=== PATIENT | male | born 1965 | race Hispanic/Latino ===

== ENCOUNTER 2017-10-27 03:02 | Emergency (ER) | payer OTHER ==
[2017-10-27 03:24] VITALS: RESP 18
[2017-10-27] MEDS ORDERED: Albuterol-Ipratrop 3 mg / 0.5 (3 ml) UD INH STA ×2 (03:45→03:46)
[2017-10-27] MEDS ORDERED: Dexamethasone 4 mg/1 ml IM STA (03:45)
[2017-10-27] MEDS ORDERED: Albuterol-Ipratrop 3 mg / 0.5 (3 ml) UD ONE (03:54)
--- NOTE | 2017-10-27 04:01 | ED PDOC ---
HPI: General Adult Time Seen by Provider: 10/27/17 03:30 Chief Complaint (Nursing): ENT Problem Chief Complaint (Provider): ENT Problem History Per: Patient History/Exam Limitations: intoxication Onset/Duration Of Symptoms: Other (3 years) Have you had recent travel within the past 21 days to any of the following countries: [place], [place], [place] or [place]?: No Current Symptoms Are (Timing): Still Present Additional Complaint(s): 52 y/o undomiciled male with a history of COPD presents to the ED with nasal pain. Patient states he has had this for 3 years, however it has worsened in the last month. He denies taking anything for the pain, but admits to drinking daily. Patient states his friend was being evaluated in ED, so he signed in as well. Denies any recent trauma, but states he broke his nose years ago. PMD: None available Past Medical History Reviewed: Historical Data, Nursing Documentation, Vital Signs Vital Signs: Last Vital Signs Temp 97.8 F 10/27/17 03:21 Pulse 103 H 10/27/17 04:48 Resp 18 10/27/17 04:48 BP 145/84 10/27/17 04:21 Pulse Ox 89 L 10/27/17 05:41 - Medical History PMH: COPD Other PMH: right wrist fracture, cirrhosis - Surgical History Surgical History: No Surg Hx - Family History Family History: States: Unknown Family Hx - Living Arrangements Living Arrangements: Other (homeless) - Social History Current smoker - smoking cessation education provided: Yes (one pack per day) Ex-Smoker (has not smoked in the last 12 months): No Alcohol: > 2 Drinks/Day Drugs: Denies - Home Medications Home Medications: Ambulatory Orders Medication Instructions Recorded oxyCODONE/Acetaminophen [Percocet 1 tab PO Q6 #15 tab 06/22/17 5/325 mg Tab] Acetaminophen with Codeine 1 each PO Q6 PRN #12 tablet 06/28/17 [Tylenol with Codeine #3 Tablet] Permethrin 1% Kit [Nix Complete 1 appl TOP DAILY #1 bottle 06/28/17 Lice Elimination Kit 1%] Albuterol Sulfate [Ventolin Hfa] 1 puff IH Q4 #1 each 10/27/17 - Allergies Allergies/Adverse Reactions: Allergies Allergy/AdvReac Type Severity Reaction Status Date / Time No Known Allergies Allergy Unverified 06/22/17 02:03 Review of Systems ROS Statement: Except As Marked, All Systems Reviewed And Found Negative ENT: Positive for: Nose Pain Physical Exam - Reviewed Nursing Documentation Reviewed: Yes Vital Signs Reviewed: Yes - Physical Exam Appears: Positive for: Non-toxic ((+) odor of alcohol), No Acute Distress Head Exam: Positive for: ATRAUMATIC, NORMOCEPHALIC Skin: Positive for: Warm, Dry Eye Exam: Positive for: EOMI, PERRL, Conjunctival injection (bilaterally) ENT: Positive for: Pharynx Is (clear, uvula midline), Other (grossly deviated nasal septum, diffused tenderness to the nasal bridge (-) overlying skin changes ). Negative for: Sinus Pain/Drainage, Nasal Congestion (or nasal flaring) Neck: Positive for: Painless ROM, Supple Cardiovascular/Chest: Positive for: Regular Rate, Rhythm. Negative for: Murmur Respiratory: Positive for: Decreased Breath Sounds (bilaterally), Rhonchi ( scattered), Wheezing (scattered), Other (speaking in full sentences, respirations even and nonlabored). Negative for: Accessory Muscle Use, Stridor , Respiratory Distress Gastrointestinal/Abdominal: Positive for: Soft. Negative for: Tenderness, Mass , Distended, Guarding Back: Positive for: Normal Inspection. Negative for: L CVA Tenderness, R CVA Tenderness, Vertebral Tenderness Extremity: Positive for: Normal ROM Neurologic/Psych: Positive for: Alert, Oriented (x3), Gait (steady in ED). Negative for: Motor/Sensory Deficits, Aphasia, Facial Droop - ECG O2 Sat by Pulse Oximetry: 89 (RA) Pulse Ox Interpretation: Normal Medical Decision Making Medical Decision Making: Time: 03:21 Impression: Nasal pain and COPD/chronic SOB Initial Plan: * Albuterol 3 ml INH x2 * Decadron 10 mg IM 0500 On re-evaluation, patient reports improvement of symptoms. On exam, patient remains AAOx3, in no acute distress. Lungs with improved breath sounds bilaterally, cardiac RRR, abdomen soft, non-tender, repeat neuro exam shows no focal findings. Repeat O2: 95% on RA. Stable for discharge. Lab/Diagnostic results d/w the patient in great detail. Diagnosis of COPD exacerbation, chronic nasal pain d/w the patient. Based on history, exam and diagnostic results, plan will be for outpatient follow up. Patient instructed to follow-up with pmd / referral provided / the clinic in 1- 2 days without fail. Advised to take medication as prescribed. Return to the emergency room at any time for any new or worsening symptoms. Patient states he fully agrees with and understands discharge instructions. States that he agrees with the plan and disposition. Verbalized and repeated discharge instructions and plan. I have given the patient opportunity to ask any additional questions. Scribe Attestation: Documented by Yazmin Amaya acting as a scribe for Alisha Gonzales PA-C. MD Scribe Attestation: All medical record entries made by the Scribe were at my direction and personally dictated by me. I have reviewed the chart and agree that the record accurately reflects my personal performance of the history, physical exam, medical decision making, and the department course for this patient. I have also personally directed, reviewed, and agree with the discharge instructions and disposition. Disposition - Clinical Impression Clinical Impression: Nasal pain, COPD (chronic obstructive pulmonary disease) - Patient ED Disposition Is Patient to be Admitted: No Counseled Patient/Family Regarding: Diagnosis, Need For Followup, Rx Given, Smoking Cessation - Disposition Referrals: [facility] [Outside] Disposition: Routine/Home Disposition Time: 05:04 Condition: STABLE Prescriptions: Albuterol Sulfate [Ventolin Hfa] 1 puff IH Q4 #1 each Instructions: Chronic Obstructive Pulmonary Disease (COPD), Including Emphysema , Inhalers, Exacerbation of COPD (DC), Risk Factors for COPD Forms: [employer] (Georgian) Print Language: ROMANSH
[2017-10-27 05:07] VITALS: O2SAT 89
[2017-10-27 06:12] VITALS: BP 137/78; PULSE 92; TEMP 98.9
== END 2017-10-27 05:58 | disposition home or self-care (01) ==
LOC: H.ER 03:02
DX: J34.89 Other specified disorders of nose and nasal sinuses (principal); J44.9 Chronic obstructive pulmonary disease, unspecified; F17.210 Nicotine dependence, cigarettes, uncomplicated; K74.60 Unspecified cirrhosis of liver
CPT/HCPCS: 82948; 94640; 96372; 99284; J1100